=== PATIENT | male | born 1965 | race Caucasian/White ===

== ENCOUNTER 2016-11-12 17:58 | Emergency (ER) | payer BC ==
[~2016-11-12] VITALS: Ht 177.8 cm; Wt 90.6 kg
[2016-11-12 18:17] VITALS: TEMP 36.7; Ht 177.8 cm; Wt 90.6 kg
[2016-11-12] MEDS ORDERED: CEFAZOLIN SOD 1000MG/55 ML D5W IV STA (18:31)
[2016-11-12] MEDS ORDERED: BUPIVACAINE 0.5 % 5 MG/1 ML MPF 30ML VIAL INFIL ONE (18:45)
[2016-11-12] MEDS ORDERED: DIPHTHERIA/TETANUS/PERTUSSIS 0.5 ML SYR/VIAL IM. ONE (18:45)
[2016-11-12] MEDS ORDERED: XYLOCAINE 1%/SOD BICARB 20 ML VIAL INFIL ONE (18:45)
--- NOTE | 2016-11-12 19:01 | DIAGNOSTIC IMAGING REPORT ---
LEFT FOURTH FINGER 3 VIEWS CLINICAL HISTORY: FOURTH finger dislocation. FINDINGS: 3 views of the left fourth finger are obtained. No prior studies are available for comparison at the time of dictation. The skeletal structures are well mineralized. No fracture is clearly identified. There is posterior dislocation at the fourth proximal interphalangeal joint. Overlying soft tissue edema is noted. The fourth carpometacarpal and distal interphalangeal joints are well-maintained. A small radiodense metallic foreign body is seen adjacent to the third metacarpal head. IMPRESSION: 1. There is posterior dislocation at the fourth proximal interphalangeal joint with overlying soft tissue swelling. 2. No definite fracture is seen. 3. A small metallic foreign body seen at the level of the third metacarpal head. Electronically signed by: Felipe Barroso M.D. 11/12/2016 7:00 PM Dictated Date/Time: 11/12/2016 6:58 PM
[2016-11-12 19:58] VITALS: BP 138/64; PULSE 63; O2SAT 95
--- NOTE | 2016-11-12 20:16 | DIAGNOSTIC IMAGING REPORT ---
LEFT FINGER(S) MIN 2 VIEWS ROUTINE CLINICAL HISTORY: 51 years-old Male presenting with left fourth finger dislocation, postreduction. TECHNIQUE: Frontal, oblique, and lateral views of the left fourth finger were obtained. COMPARISON: 11/12/2016 at 6:51 PM. FINDINGS: Interval reduction of recently noted dorsal dislocation of the middle phalanx of the fourth finger. No residual malalignment is evident. No fracture fragment is appreciated suggest avulsion injury. Redemonstration of the small linear metallic foreign body projecting near the third metacarpophalangeal joint. Mild soft tissue swelling at the proximal interphalangeal joint of the fourth finger. IMPRESSION: Interval reduction of dorsal dislocation of the middle phalanx of the fourth finger. No evidence of fracture. Electronically signed by: Ottoniel Oates M.D. 11/12/2016 8:15 PM Dictated Date/Time: 11/12/2016 8:13 PM
[2016-11-12] MEDS ORDERED: CEPH500C PO (20:19)
--- NOTE | 2016-11-12 20:20 | EMERGENCY ROOM VISIT NOTE ---
History First contact with patient: 18:19 Chief Complaint: FINGER PAIN Stated Complaint: DISLOCATED FINGER History of Present Illness The patient is a 51 year old male who presents to the Emergency Room with complaints of a dislocated left fourth finger. The patient states that he fell down a few steps this morning injuring the left fourth finger. He also reports minimal pain in the left shoulder but has full range of motion of the shoulder. He reports he tripped over a cat, causing him to fall. He had x-rays performed in [place] at an urgent care and was sent here for further evaluation. He does not have the x-rays with him. He states he received no further treatment there. He rates his discomfort a 4/10. He denies any other injuries. Review of Systems A complete 10 point review of systems was reviewed with the patient with pertinent positives and negatives as per history of present illness. All else were negative. Past Medical/Surgical History Medical Problems: (1) No significant medical problems Surgical Problems: (1) No significant past surgical history Social History Smoking Status: Current Every Day Smoker Alcohol Use: occasionally Marital Status: Housing Status: lives with family Occupation Status: employed Current/Historical Medications Scheduled Cephalexin Monohydrate (Keflex), 500 MG PO TID Physical Exam Vital Signs Date Time Temp Pulse Resp B/P (MAP) Pulse Ox O2 Delivery O2 Flow Rate FiO2 11/12/16 19:58 63 20 138/64 95 Room Air 11/12/16 18:17 36.7 69 18 163/81 96 Room Air Physical Exam VITALS: Vitals are noted on the nurse's note and reviewed by myself. Vital signs stable. GENERAL: This is a 51-year-old male, in no acute distress, nondiaphoretic, well- developed well-nourished. MUSCULOSKELETAL: There is tenderness at the left fourth PIP with obvious deformity. There is a small, 1 cm superficial laceration to the palmar aspect of the PIP. There is no bone or deep structures visible in the base of the wound. NEURO: Patient was alert and oriented to person place and time. Normal sensation to light and sharp touch. Medical Decision & Procedures ER Provider Diagnostic Interpretation: LEFT FOURTH FINGER 3 VIEWS IMPRESSION: 1. There is posterior dislocation at the fourth proximal interphalangeal joint with overlying soft tissue swelling. 2. No definite fracture is seen. 3. A small metallic foreign body seen at the level of the third metacarpal head. LEFT FINGER(S) MIN 2 VIEWS ROUTINE IMPRESSION: Interval reduction of dorsal dislocation of the middle phalanx of the fourth finger. No evidence of fracture. Medications Administered Medications (Trade) Dose Ordered Sig/Melvina Route Start Time Stop Time Status Last Admin Dose Admin Cefazolin Sodium (Ancef 1000mg/55 ml D5W) 1,000 mg NOW STAT IV 11/12/16 18:31 11/12/16 18:33 DC 11/12/16 19:56 1,000 MG Diphtheria/ Pertussis/Tetanus Vacc (Adacel Inj) 0.5 ml ONCE ONCE IM. 11/12/16 18:45 11/12/16 18:46 DC 11/12/16 19:30 0.5 ML Cephalexin Monohydrate (Keflex 500MG Home Pack) 1 homepack NOW ONCE PO 11/12/16 20:30 11/12/16 20:31 DC 11/12/16 20:29 1 HOMEPACK Procedure Verbal consent was obtained to perform the procedure. 7 ml of a 2:1 solution of 1% buffered lidocaine and bupivacaine was used to perform a digital block to anesthetize the patient. The area was sterilely draped. Using gentle traction , the finger dislocation was easily reduced. The superficial laceration was further explored and cleansed with sterile saline and Betadine. This appears to be superficial and I do not feel it truly represents an open fracture. This did not require sutures. The patient tolerated the procedure well. Medical Decision Differential diagnosis includes fracture, dislocation, open dislocation, contusion, sprain, among others. The patient was evaluated as above. He presents with a dislocation of the left fourth finger with an overlying superficial laceration. Upon further exploration, this laceration appears to be very superficial and I do not feel this truly represents an open dislocation. However, I did choose to treat the patient with Ancef and Keflex to ensure that no infection develops. He was given orthopedic referral. He was placed in a metal finger splint. Postreduction x-rays showed no fractures or foreign bodies. He was instructed on symptoms to return to the emergency department and discharged home in good condition. Impression Primary Impression: Finger dislocation Departure Information Dispostion Home / Self-Care Condition GOOD Prescriptions Cephalexin Monohydrate (Keflex) 500 Mg Cap 500 MG PO TID for 7 Days, #21 CAP Prov: Shari Villela PA-C 11/12/16 Referrals No Doctor, Assigned (PCP) Cezar Warren D.O. Patient Instructions My [facility] Additional Instructions Proper wound care is essential for adequate wound healing and infection prevention. You can shower and clean the wound with soap and water. Do not scour over the wound, pat dry with a towel. Do not submerse the wound (i.e. bathe or dish wash) until the wound has fully healed. You can use an antibiotic ointment with a dressing over the wound for the next 3-4 days. After this time you may leave the wound dry and open to the air. Leave the splint in place for the next 2-3 days as needed. For pain control, you can use the following [id number] medicines (if >12 yo): - Regular strength (325mg/tab) Tylenol (acetaminophen) 2 tabs every 4-6 hours as needed. Do not exceed 12 tablets in a 24 hour period. Avoid taking more than 4 grams (4000 mg) of Tylenol per day. This includes any other sources of acetaminophen you may take on a regular basis. - Regular strength (200 mg/tab) Advil (ibuprofen) 1-2 tabs every 4-6 hours as needed. Do not exceed a dose of 3200 mg per day. Take the Keflex as prescribed. Follow-up with your primary care provider or orthopedics as needed.
[2016-11-12] MEDS ORDERED: CEPHALEXIN 500MG HOME PACK 1 EA BTL PO ONE (20:30)
== END 2016-11-12 20:25 | disposition home or self-care (01) ==
LOC: C.EDB 17:59 → C.EDD 20:25
DX: S63.255A Unspecified dislocation of left ring finger, initial encounter (principal); W10.8XXA Fall (on) (from) other stairs and steps, initial encounter; Z23 Encounter for immunization; F17.200 Nicotine dependence, unspecified, uncomplicated